=== PATIENT | female | born 1955 | race Caucasian/White ===

== ENCOUNTER 2019-02-09 18:01 | Emergency (ER) | payer OTHER ==
[~2019-02-09] VITALS: Ht 157.4 cm; Wt 102.1 kg
[2019-02-09] MEDS ORDERED: MEDROL DOSEPAK4 MG PO (18:36)
== END 2019-02-09 18:51 | disposition home or self-care (01) ==
LOC: ED 18:01
DX: T80.69XA Other serum reaction due to other serum, initial encounter (principal); M54.2 Cervicalgia; Z88.0 Allergy status to penicillin; Z88.2 Allergy status to sulfonamides; Y92.89 Other specified places as the place of occurrence of the external cause

== ENCOUNTER → 2020-02-02 | Outpatient (CLI) | payer MEDICARE ==
[~2020-02-02] MED LIST: MEDROL DOSEPAK4 MG PO
[2020-02-02 10:04] LABS: BASO % 0.5 % (0.0-1.0); EOS # 0.1 10*3/uL (0.0-0.4); EOS % 1.3 % (1.0-4.0); HEMATOCRIT 39.4 % (37.0-47.0); LYMPH # 2.2 10*3/uL (1.3-4.4); LYMPH % 36.7 % (27.0-41.0); MEAN CELL VOLUME 92.1 fl (81.0-99.0); MEAN CORPUSCULAR HGB 30.6 pg (27.0-31.0); MEAN CORPUSCULAR HGB CONC 33.2 g/dl (33.0-37.0); MEAN PLATELET VOLUME 11.6 fl (9.6-12.3); MONO # 0.5 10*3/uL (0.1-1.0); MONO % 8.5 % (3.0-9.0); NEUT # 3.2 10*3/uL (2.3-7.9); NEUT % 52.8 % (47.0-73.0); PLATELET COUNT AUTOMATED 171 10*3/uL (130-400); RED BLOOD COUNT 4.28 10*6/uL (4.10-5.10); RED CELL DISTRI WIDTH 13.2 % (0-14.5); WHITE BLOOD COUNT 6.1 10*3/uL (4.8-10.8)
[2020-02-02 10:19] LABS: ACT PARTIAL THROMBO TIME 25.1 SECONDS (20.0-32.1); INTERNATIONAL NORM RATIO 1.1 (2.0-3.5)
[2020-02-02 10:25] LABS: ALBUMIN 3.7 gm/dl (3.1-4.5); BUN 18 mg/dl (7-24); CHLORIDE 108 mmol/L (98-107); CREATININE 0.72 mg/dL (0.55-1.02); POTASSIUM 3.2 mmol/L (3.5-5.1); SGOT/AST 21 IU/L (3-35); SGPT/ALT 39 U/L (12-78); SODIUM 142 mmol/L (136-145); TOTAL PROTEIN 7.2 gm/dL (6.4-8.2)
[2020-02-02 10:35] LABS: ALKALINE PHOSPHATASE 57 U/L (45-117)
[2020-02-02 11:04] LABS: VITAMIN D, 25-HYDROXY 25.9 ng/mL (30-100)
== END | disposition home or self-care (01) ==
LOC: LAB 09:21
PROVIDERS: Internal Medicine; ATTEND Internal Medicine Rheumatology
DX: E55.9 Vitamin D deficiency, unspecified (principal); R74.0 Nonspecific elevation of levels of transaminase and lactic acid dehydrogenase [LDH]; D51.0 Vitamin B12 deficiency anemia due to intrinsic factor deficiency; D68.8 Other specified coagulation defects; E78.5 Hyperlipidemia, unspecified; M06.09 Rheumatoid arthritis without rheumatoid factor, multiple sites; Z79.899 Other long term (current) drug therapy